=== PATIENT | female | born 1980 ===

== ENCOUNTER 2018-12-02 20:47 | Emergency (ER) | payer OTHER ==
[2018-12-02] MEDS ORDERED: MORPHINE SULFATE 4 MG/ML SYRINGE IV STA (21:07)
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
[2018-12-02 21:39] LABS: Basophils # (A) 0.1 k/uL (0-0.2); Basophils % (A) 1 %; Eosinophils # (A) 0.2 k/uL (0-0.7); Eosinophils % (A) 3 %; HCT 34.3 % (34.0-46.0); HGB 11.2 gm/dL (11.4-16.0); Lymphocytes # (A) 2.2 k/uL (1.0-4.8); Lymphocytes % (A) 25 %; MCH 23.3 pg (25.0-35.0); MCHC 32.5 g/dL (31.0-37.0); MCV 71.7 fL (80.0-100.0); Mean Platelet Volume 6.1; Microcytosis Moderate; Monocytes # (A) 0.7 k/uL (0-1.0); Monocytes % (A) 8 %; Neutrophils # (A) 5.4 k/uL (1.3-7.7); Neutrophils % (A) 61 %; Platelet Count 303 k/uL (150-450); RBC 4.79 m/uL (3.80-5.40); RDW 15.1 % (11.5-15.5); WBC 8.8 k/uL (3.8-10.6)
[2018-12-02 21:47] LABS: INR 0.9 (<1.2); Prothrombin Time 9.9 sec (9.0-12.0)
[2018-12-02 21:48] LABS: African American GFR (CKD) >90 (>60 ml/min/1.73 sqM); Anion Gap 8 mmol/L; Blood Urea Nitrogen 6 mg/dL (7-17); Calcium 9.4 mg/dL (8.4-10.2); Carbon Dioxide 24 mmol/L (22-30); Chloride 109 mmol/L (98-107); Glucose 78 mg/dL (74-99); Potassium 3.8 mmol/L (3.5-5.1); Sodium 141 mmol/L (137-145)
--- NOTE | 2018-12-02 21:57 | XR ---
EXAMINATION TYPE: XR knee complete bilateral DATE OF EXAM: 12/02/2018 COMPARISON: NONE HISTORY: Bilateral knee pain TECHNIQUE: 3 views each knee FINDINGS: There is no sign of fracture nor dislocation. Joint spaces are normal. There is no sign of knee joint effusion. IMPRESSION: Negative bilateral knee exam.
--- NOTE | 2018-12-02 21:58 | XR ---
EXAMINATION TYPE: XR humerus LT DATE OF EXAM: 12/02/2018 COMPARISON: NONE HISTORY: Pain TECHNIQUE: 2 views FINDINGS: Shoulder joint and elbow joint appear intact. I see no fracture nor dislocation. IMPRESSION: Negative left humerus exam.
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
[2018-12-02] MEDS ORDERED: KETOROLAC 30 MG/ML 1 ML VIAL IVP STA (22:49)
[2018-12-02 22:57] VITALS: BP 140/83; PULSE 77; RESP 19; TEMP 99
[2018-12-02] MEDS ORDERED: traMADol 50 MG STARTER PACK 3 TAB BTL PO STA (22:57)
== END 2018-12-03 | disposition home or self-care (01) ==
LOC: EC 20:47
DX: S80.02XA Contusion of left knee, initial encounter (principal); S80.01XA Contusion of right knee, initial encounter; V43.62XA Car passenger injured in collision with other type car in traffic accident, initial encounter; Y92.410 Unspecified street and highway as the place of occurrence of the external cause
CPT/HCPCS: 36415; 80048; 85025; 85610; 81025; 73562; 73060; 71260; 74177; 99285; 96374; 96375; L1830 ×2; J2270; J1885; Q9967